=== PATIENT | male | born 1980 | race Caucasian/White ===

== ENCOUNTER 2017-11-02 23:02 | Emergency (ER) | payer MEDICAID, SELFPAY ==
[2017-11-02 23:03] VITALS: BP 120/72; PULSE 73; RESP 14; TEMP 37; O2SAT 98; BMI 34.7
--- NOTE | 2017-11-02 23:26 | ED.VISSUMM ---
- ER Visit Summary Date of Service: 11/02/17 Chief Complaint: Abdominal pain History of Present Illness: The patient is a 37 M presenting with abdominal pain. He states it started today. He has had nausea, vomiting, diarrhea. He denies blood in his stool or emesis. He has a history of gastritis and is on Prilosec. He had endoscopy 3 months ago and is scheduled for repeat endoscopy next week. He denies sick contacts. Denies bad food exposure. Denies recent travel or antibiotics. Denies fever or other complaints. Physical Examination: Vitals are stable. Patient is afebrile. Alert no acute distress. HEENT exam is unremarkable. Neck is supple. Lungs are clear and equal bilaterally. Heart is regular rate and rhythm. Abdomen is soft mild epigastric tenderness with no rebound or guarding. Extremities are unremarkable. Skin is warm and dry. No focal neurologic deficit. Remainder of exam is unremarkable. Emergency Department Course and Treatment: Patient is given IV fluids, Zofran, GI cocktail. CBC, chemistries unremarkable. Liver enzymes show AST of 40, lipase is normal. Patient's nausea has improved. He continues to complain of pain and was given 1 dose of Dilaudid. He is resting comfortably on repeat evaluation. He is able to tolerate p.o. in the emergency department. He is advised to follow up with his GI doctor as scheduled. He is given a prescription for Zofran. Advised return to ED if worsening complaints. Disposition: Discharge home Impression: Abdominal pain, vomiting and diarrhea This note was generated with [email or web address] dictation software. It may contain incorrect words, spelling, and punctuation that were not noted in review of the chart prior to signing ED Disposition - Plan for ED Patient: Disposition: Home or Assisted Living Chief Complaint: Abd Pain Instructions: ED Abdominal Pain Unkn Cause Prescriptions: Ondansetron [Zofran Odt] 4 mg PO Q8H PRN PRN #10 tablet PRN Reason: Nausea Referrals: Elmer Kebede [Primary Care Provider] -
[2017-11-02 23:41] LABS: Absolute Lymphocyte Count 1.55 X10^3/ul (0.83-4.51); Absolute Neutrophil Count 7.1 X10^3/uL (2.0-7.7); Basophil# 0.01 X10^3/uL; Basophil% 0.1 % (0-1); Eosinophil# 0.19 X10^3/uL; Hematocrit 44.9 % (40-54); Hemoglobin 15.9 g/dl (13.0-16.5); Lymphocyte # 1.55 X10^3/ul (4.0); Lymphocyte % 16.5 % (19-41); Mean Corp Hgb Conc 35.4 g/gl (32-36); Mean Corpuscular Hgb 30.2 pg (27.0-32.0); Mean Corpuscular Volume 85.2 fL (80-94); Mean Platelet Vol. 9.8 fl (6.2-12.0); Monocyte# 0.52 X10^3/uL; Monocyte% 5.5 % (0-10); Neutrophil # 7.08 X10^3/uL (2.7-7.7); Neutrophil % 75.7 % (47-70); Platelet Count 241 K/mm3 (150-450); RBC Distribution Width CV 13.3 % (11.6-14.6); RBC Distribution Width SD 40.6 fl (35.1-43.9); Red Blood Count 5.27 M/mm3 (4.6-6.2); White Blood Count 9.4 K/mm3 (4.4-11.0)
[2017-11-02] MEDS: Ondansetron 4 MG/2 ML Vial IV (23:41)
[2017-11-02] MEDS: 0.9% Normal Saline 1,000 ML 999 ML IV (23:41)
[2017-11-02 23:44] LABS: POSITIVE COUNT NO; POSITIVE DIFFERENTIAL NO; POSITIVE MORPHOLOGY NO
[2017-11-03 00:05] LABS: AST(SGOT) 40 U/L (15-37); Alanine Aminotransfer ALT/SGPT 41 U/L (16-61); Albumin, Serum 4.2 g/dL (3.2-5.0); Alkaline Phosphatase 63 U/L (45-117); Anion Gap 7 (5-15); BUN 13 mg/dL (7-18); BUN/Creat Ratio 13.1 RATIO (10-20); Calcium,Total 9.5 mg/dL (8.5-10.1); Chloride 101 mmol/L (98-107); Creatinine, Serum 0.99 mg/dL (0.70-1.30); EST Glomerular Filtration Rate 91 mL/min (>60); Est Glom Filt Rate - Afr Amer 110 mL/min (>60); Estimated Creatinine Clearance 110.92 ml/min; Globulin 4.4 g/dL (2.2-4.2); Glucose 111 mg/dL (74-106); Lipase 78 U/L (73-393); Potassium 5.1 mmol/L (3.5-5.1); Protein, Total 8.6 g/dL (6.4-8.2); Sodium Level 134 mmol/L (136-145)
--- NOTE | 2017-11-03 00:19 | ED.DEP ---
ED Disposition - Plan for ED Patient: Chief Complaint: Abd Pain Instructions: ED Abdominal Pain Unkn Cause Prescriptions: Ondansetron [Zofran Odt] 4 mg PO Q8H PRN PRN #10 tablet PRN Reason: Nausea Referrals: Elmer Kebede [Primary Care Provider] -
[2017-11-03] MEDS: HYDROmorphone 1 MG/ML Syringe IV (00:25)
[2017-11-03 00:30] VITALS: BP 132/82; PULSE 67; RESP 18; O2SAT 97
[2017-11-03 00:41] VITALS: BP 159/75; PULSE 63; RESP 18; O2SAT 97
== END 2017-11-03 00:43 | disposition home or self-care (01) ==
LOC: ED 11-03 00:03
PROVIDERS: Emergency Provider Emergency Medicine; Family Provider Internal Medicine; PCP Internal Medicine
DX: R10.13 Epigastric pain (principal); R19.7 Diarrhea, unspecified; R11.2 Nausea with vomiting, unspecified; K21.9 Gastro-esophageal reflux disease without esophagitis; Z79.899 Other long term (current) drug therapy
CPT/HCPCS: 80053; 83690; 85025; 96374; 96375; 99283; J7030; A4216; J2405